=== PATIENT | male | born 1975 | race Two or more races ===

== ENCOUNTER 2017-08-30 18:23 | Emergency (ER) | payer OTHER ==
[~2017-08-30] VITALS: Ht 165.1 cm; Wt 86.6 kg
[~2017-08-30 18:23] MED LIST: DICLOFENAC SODI50 MG PO; GILPHEX TR TAB1 EACH PO; IMODIUM A-D2 MG PO; ORPH100T PO
[2017-08-30] MEDS ORDERED: LIPITOR20 MG PO (18:57)
== END 2017-08-30 20:15 | disposition home or self-care (01) ==
LOC: ER 18:23
DX: M54.5 Low back pain (principal); M62.830 Muscle spasm of back

== ENCOUNTER 2017-12-20 08:56 | Emergency (ER) | payer OTHER ==
[~2017-12-20] VITALS: Ht 165.1 cm; Wt 81.6 kg
[~2017-12-20 08:56] MED LIST changes: +LIPITOR20 MG PO
== END 2017-12-20 12:46 | disposition home or self-care (01) ==
LOC: ER 08:56
DX: B34.9 Viral infection, unspecified (principal); J02.9 Acute pharyngitis, unspecified

== ENCOUNTER → 2019-07-04 | Emergency (ER) | payer OTHER | END | disposition left against medical advice (07) | LOC: ER 20:48 | DX: Z53.20 Procedure and treatment not carried out because of patient's decision for unspecified reasons (principal) ==

== ENCOUNTER 2020-03-27 13:24 | Emergency (ER) | payer OTHER ==
[~2020-03-27] VITALS: Ht 165.1 cm; Wt 86.2 kg
[2020-03-27] MEDS ORDERED: SIMVASTATIN40 MG (13:48)
== END 2020-03-27 20:52 | disposition home or self-care (01) ==
LOC: ER 13:24
DX: B33.8 Other specified viral diseases (principal); Z03.818 Encounter for observation for suspected exposure to other biological agents ruled out; R06.02 Shortness of breath

== ENCOUNTER 2021-06-01 11:38 | Emergency (ER) | payer OTHER ==
[~2021-06-01] VITALS: Ht 165.1 cm; Wt 77.1 kg
[~2021-06-01 11:38] MED LIST changes: +SIMVASTATIN40 MG
== END 2021-06-01 18:21 | disposition home or self-care (01) ==
LOC: ER 11:38
DX: J40 Bronchitis, not specified as acute or chronic (principal); B34.9 Viral infection, unspecified; Z20.822 Contact with and (suspected) exposure to COVID-19

== ENCOUNTER 2021-12-07 23:25 | Emergency (ER) | payer OTHER ==
[~2021-12-07] VITALS: Ht 165.1 cm; Wt 74.8 kg
[2021-12-08] MEDS ORDERED: KETO10TA2 PO (03:09)
[2021-12-08] MEDS ORDERED: NORFLEX100MG PO (03:09)
== END 2021-12-08 03:20 | disposition home or self-care (01) ==
LOC: ER 23:25
DX: M79.641 Pain in right hand (principal); M54.50 Low back pain, unspecified

== ENCOUNTER 2022-08-02 23:40 | Emergency (ER) | payer OTHER ==
[~2022-08-02] VITALS: Ht 165.1 cm; Wt 76.7 kg
[~2022-08-02 23:40] MED LIST changes: +KETO10TA2 PO; +NORFLEX100MG PO
[2022-08-03] MEDS ORDERED: TUSNEL LIQUID178 ML PO (02:32)
[2022-08-03] MEDS ORDERED: ZITHROMAX TRI-500 MG PO (02:32)
== END 2022-08-03 02:38 | disposition home or self-care (01) ==
LOC: ER 23:40
DX: J00 Acute nasopharyngitis [common cold] (principal); Z20.822 Contact with and (suspected) exposure to COVID-19

== ENCOUNTER 2022-11-07 18:15 | Emergency (ER) | payer OTHER ==
[~2022-11-07] VITALS: Ht 165.1 cm; Wt 79.8 kg
[~2022-11-07 18:15] MED LIST changes: +TUSNEL LIQUID178 ML PO; +ZITHROMAX TRI-500 MG PO
== END 2022-11-07 20:46 | disposition home or self-care (01) ==
LOC: ER 18:15
DX: J06.9 Acute upper respiratory infection, unspecified (principal); R53.81 Other malaise; Z20.822 Contact with and (suspected) exposure to COVID-19

== ENCOUNTER 2023-01-30 23:28 | Emergency (ER) | payer OTHER ==
[~2023-01-30] VITALS: Ht 165.1 cm; Wt 80.7 kg
[2023-02-01] MEDS ORDERED: COZAAR25 MG PO (00:53)
[2023-02-01] MEDS ORDERED: COZAAR50 MG PO (02:34)
== END 2023-01-31 01:51 | disposition home or self-care (01) ==
LOC: ER 23:28
DX: I10 Essential (primary) hypertension (principal)

== ENCOUNTER 2023-02-01 00:33 | Emergency (ER) | payer OTHER ==
[~2023-02-01] VITALS: Ht 165.1 cm; Wt 80.7 kg
[2023-02-01] MEDS ORDERED: COZAAR25 MG PO (00:53)
[2023-02-01] MEDS ORDERED: COZAAR50 MG PO (02:34)
== END 2023-02-01 02:40 | disposition home or self-care (01) ==
LOC: ER 00:33
DX: I10 Essential (primary) hypertension (principal)

== ENCOUNTER 2024-05-06 13:04 | Emergency (ER) | payer OTHER ==
[~2024-05-06] VITALS: Ht 165.1 cm; Wt 74.4 kg
[~2024-05-06 13:04] MED LIST changes: +COZAAR25 MG PO; +COZAAR50 MG PO
[2024-05-06] MEDS ORDERED: 0.9 % SODIUM CHLORIDE 1,000 ML IV ONE (16:15)
[2024-05-06] MEDS ORDERED: ACETAMINOPHEN 500 MG GEL..CAP PO ONE (16:15)
[2024-05-06] MEDS ORDERED: FAMOTIDINE/PF 20 MG/2 ML VIAL IV ONE (16:15)
[2024-05-06] MEDS ORDERED: ONDANSETRON HCL 2 MG/ML VIAL IV ONE (16:15)
[2024-05-06] MEDS ORDERED: LACTOBACILLUS ACIDOPHILUS 1 CAP CAP PO ONE (16:15)
[2024-05-06 16:59] LABS: HEMATOCRIT 49.5 % (39.0-48.0); HEMOGLOBIN 16.4 g/dL (13-16.00); MEAN CELL VOLUME 84.6 fL (80.0-100.00); MEAN CORPUSCULAR HGB CONC 33.2 g/dl (32.0-36.0); PLATELET COUNT 210 K/uL (150-450); RED BLOOD COUNT 5.85 M/uL (4.00-6.00); RED CELL DISTRIBUTION WIDTH 13.4 % (11.5-14.5)
[2024-05-06 17:02] LABS: ALBUMIN 3.8 gm/dL (3.4-5.0); BILIRUBIN TOTAL 0.55 mg/dL (0.3-1.2); CREATININE SERUM 1.07 mg/dL (0.70-1.30); GFR 73.45; GLOBULINA 3.8 G/DL (2.4-3.5); POTASSIUM 4.06 mEq/L (3.5-5.1); TOTAL PROTEIN 7.6 gm/dL (6.4-8.2)
[2024-05-06] MEDS ORDERED: CIPROFLOXACIN IN 5 % DEXTROSE 400 MG/200 ML PIGGYBAG IV ONE (19:30)
[2024-05-06] MEDS ORDERED: METRONIDAZOLE/SODIUM CHLORIDE 500 MG/100 ML PIGGYBACK IV ONE (19:30)
[2024-05-06] MEDS ORDERED: KETOROLAC TROMETHAMINE 30 MG VIAL IV ONE (20:30)
[2024-05-06] MEDS ORDERED: PEPCID AC20 MG PO (20:37)
[2024-05-06] MEDS ORDERED: CIPRO500 MG PO (20:37)
[2024-05-06] MEDS ORDERED: METRONIDAZOLE500 MG PO (20:37)
[2024-05-06] MEDS ORDERED: INTESTINEX680 M1 PO (20:37)
[2024-05-06] MEDS ORDERED: ONDANSETRON HCL4 MG PO (20:37)
== END 2024-05-06 21:24 | disposition home or self-care (01) ==
LOC: ER 13:06
PROVIDERS: Nurse Practitioner Family
DX: K52.89 Other specified noninfective gastroenteritis and colitis (principal); Z20.822 Contact with and (suspected) exposure to COVID-19; K42.9 Umbilical hernia without obstruction or gangrene